=== PATIENT | male | born 1945 | race African-American/Black ===

== ENCOUNTER 2020-02-09 02:42 | Outpatient (CLI) | payer MEDICARE, SELFPAY ==
[2020-02-09 19:52] LABS: SARS-CoV-2 RNA PCR Negative
== END 2020-02-09 02:43 | disposition home or self-care (01) ==
LOC: ANHCOVIDDT 02:42
PROVIDERS: PCP Internal Medicine; Visit Provider Internal Medicine Gastroenterology
DX: Z01.812 Encounter for preprocedural laboratory examination (principal); Z20.828 Contact with and (suspected) exposure to other viral communicable diseases
CPT/HCPCS: 87635; C9803; U0003

== ENCOUNTER 2020-02-12 00:55 | Day surgery (SDC) | payer MEDICARE, SELFPAY ==
[2020-02-07 15:24] VITALS: BMI 20.8
[2020-02-12 09:38] VITALS: BP 132/73; PULSE 91; RESP 17; TEMP 36.9; O2SAT 99; BMI 20.5
--- NOTE | 2020-02-12 09:50 | WPDGICN ---
Assessment and Plan Assessment and plan (1) Weight loss: Code(s): R63.4 - Abnormal weight loss Status: Acute Assessment and Plan: Patient has a history of weight loss over last year. Colonoscopy an EGD request will be performed. Suspect weight loss is related to atherosclerotic heart disease and history of abdominal aortic aneurysm now status post repair for 1 month. Patient does have a distant history of gastritis by endoscopy 1 year ago. This will be reassessed by EGD. A colonoscopy will be performed as well today (2) S/P AAA repair: Code(s): Z98.890 - Other specified postprocedural states; Z86.79 - Personal history of other diseases of the circulatory system Status: Acute (3) ASHD (arteriosclerotic heart disease): Code(s): I25.10 - Atherosclerotic heart disease of [place] coronary artery without angina pectoris Status: Acute (4) History of gastritis: Code(s): Z87.19 - Personal history of other diseases of the digestive system Status: Acute Assessment and Plan: patient has a history of gastritis documented by endoscopy 1 year ago. He complains of early satiety and no appetite. Plan is for EGD to document whether this is healed. GI Consult Note Consult date/time: 02/12/20 09:50 HPI: Fredis Obregon is a 74 year old male Seen in evaluation at the request of Dr. Salazar. patient presents with complaints of weight loss. Patient initially was 183 lb. Currently raise [id number]. Most of the weight loss is occurred over the last 1 year. His states that he does not eat well. He has no appetite. He denies any difficulty swallowing however. Old records review a history of gastritis. He has a history of H pylori which was subsequently treated. This was about 1 year ago. Past medical history is significant for abdominal aortic aneurysm repair approximately with within the last month at [facility]. Patient denies any abdominal pain. He has had no change in his bowel habits. He does see cardiology because of atherosclerotic heart disease. There has been no recent change in medications. Review of Systems Review of Systems: All systems reviewed & are unremarkable except as noted in HPI and below [facility] Social History Social History Smoking packs per day: 1 Smoking cigarettes per day: 20.0 Years smoked: 20 Smoking pack-years: 20.00 Smoking status: Former smoker Tobacco type: cigarettes Alcohol intake: never Substance use: never Substance use type: does not use Living arrangements: alone Spiritual care concerns: No Meds Home Medications and Allergies Home Medications Medication Instructions Recorded Confirmed Type aspirin 81 mg PO DAILY 02/07/20 02/12/20 History atorvastatin 10 mg PO HS 02/07/20 02/12/20 History carvedilol 3.125 mg PO Q12H 02/07/20 02/12/20 History cyproheptadine 4 mg PO HS 02/07/20 02/12/20 History isosorbide mononitrate 60 mg PO DAILY 02/07/20 02/12/20 History metoclopramide HCl 5 mg PO BID 02/07/20 02/12/20 History ooqldicq-lwl-QN-lycopen-lutein 1 tablet PO DAILY 02/07/20 02/12/20 History [Centrum Silver Men] nitroglycerin 0.4 mg SUBLINGUAL Q5M PRN 02/07/20 02/12/20 History polyethylene glycol 3350 17 g PO DAILY PRN 02/07/20 02/12/20 History sennosides [senna] 8.6 mg PO BID PRN 02/07/20 02/12/20 History benazepril 20 mg PO DAILY 02/12/20 02/12/20 History Allergies Allergy/AdvReac Type Severity Reaction Status Date / Time Penicillins Allergy Severe Anaphylactic Verified 02/12/20 09:31 Shock Vital Signs Vital Signs - 24 hr 02/12/20 09:38 Temperature 98.4 F Pulse Rate 91 Respiratory Rate 17 Blood Pressure 132/73 Pulse Oximetry 99 Exam Narrative: Exam Narrative: Physical exam reveals patient to be alert. Vital signs stable. HEENT exam unremarkable. Lungs are clear to auscultation and percussion. Heart is without murmur or extra sounds. Abdominal exam bowel sounds are pre
[2020-02-12] MEDS: LACTATED RINGERS 1,000 ML 150 ML IV CONT (10:11)
--- NOTE | 2020-02-12 10:20 | WPDANESEPPF ---
Anes - Initial Pre Proc Eval Procedure: Operation Date: 02/12/20 10:30 Proposed Procedures p Esophagogastroduodenoscopy & Screening Colonoscopy - Levon Levin MD Date/Time: 02/12/20 10:20 Surgeon: Levon Levin MD Pre Op Diagnosis: Neoplasm Screening, Wt.Loss, Early Satiety Patient Data Age: 74 Gender: M Height: 5 ft 9 in Weight: 63 kg Last Vital Signs Temp 98.4 F 02/12/20 09:38 Pulse 91 02/12/20 09:38 Resp 17 02/12/20 09:38 BP 132/73 02/12/20 09:38 Pulse Ox 99 02/12/20 09:38 Allergies Allergy/AdvReac Type Severity Reaction Status Date / Time Penicillins Allergy Severe Anaphylactic Verified 02/12/20 09:31 Shock Home Medications Medication Instructions Recorded Confirmed Type aspirin 81 mg PO DAILY 02/07/20 02/12/20 History atorvastatin 10 mg PO HS 02/07/20 02/12/20 History carvedilol 3.125 mg PO Q12H 02/07/20 02/12/20 History cyproheptadine 4 mg PO HS 02/07/20 02/12/20 History isosorbide mononitrate 60 mg PO DAILY 02/07/20 02/12/20 History metoclopramide HCl 5 mg PO BID 02/07/20 02/12/20 History qncwsyhr-cca-GU-lycopen-lutein 1 tablet PO DAILY 02/07/20 02/12/20 History [Centrum Silver Men] nitroglycerin 0.4 mg SUBLINGUAL Q5M PRN 02/07/20 02/12/20 History polyethylene glycol 3350 17 g PO DAILY PRN 02/07/20 02/12/20 History sennosides [senna] 8.6 mg PO BID PRN 02/07/20 02/12/20 History benazepril 20 mg PO DAILY 02/12/20 02/12/20 History Patient hx anesthesia problems: none Family hx anesthesia problems: none PMFSH Social History Social History Smoking packs per day: 1 Smoking cigarettes per day: 20.0 Years smoked: 20 Smoking pack-years: 20.00 Smoking status: Former smoker Tobacco type: cigarettes Alcohol intake: never Substance use: never Substance use type: does not use Living arrangements: alone Spiritual care concerns: No Anes - Eval Final PreProcedure Day of Procedure 02/12/20 10:20 Patient weight: normal Heart: regular rate and rhythm Lungs: clear to auscultation Airway: Mallampati scale class III Neurological: alert and oriented Last oral intake: >/= 8 hours ASA classification: III Emergent: no Anesthetic plan: proceed Anesthesia type and monitoring: general GIVS and standard monitoring Informed Consent: The patient's anesthetic plan and its attendant risks and benefits were discussed with the patient/family/POA. Questions were solicited and answers provided to the satisfaction of the patient/family/POA.
[2020-02-12] MEDS: SIMETHICONE ORAL SUSPENSION 20 MG/0.3 ML 30 ML BOTTLE 0.6 ML IRRIGATION (10:40)
[2020-02-12 10:50] VITALS: BP 104/63; PULSE 92; RESP 18; O2SAT 98
[2020-02-12 11:00] VITALS: BP 101/65; PULSE 87; RESP 20; O2SAT 99
--- NOTE | 2020-02-12 11:03 | SUR.PHASEII ---
DR LYON AWARE OF POSITIVE H PYLORI RESULTS, SCRIPTS WRITTEN, SPOKE WITH PT'S
[2020-02-12 11:10] VITALS: BP 117/67; PULSE 82; RESP 22; O2SAT 100
== END 2020-02-12 11:27 | disposition home or self-care (01) ==
PROVIDERS: PCP Internal Medicine; Visit Provider Internal Medicine Gastroenterology
PROC: 0DJ08ZZ Inspection of Upper Intestinal Tract, Via Natural or Artificial Opening Endoscopic (ICD-10-PCS; CPT 43235; principal; 2020-02-12 10:30)
DX: Z12.11 Encounter for screening for malignant neoplasm of colon (principal); K64.8 Other hemorrhoids; K57.30 Diverticulosis of large intestine without perforation or abscess without bleeding; Q39.4 Esophageal web; R63.4 Abnormal weight loss; I25.10 Atherosclerotic heart disease of native coronary artery without angina pectoris; Z86.79 Personal history of other diseases of the circulatory system; Z87.19 Personal history of other diseases of the digestive system; Z87.891 Personal history of nicotine dependence; Z79.82 Long term (current) use of aspirin
CPT/HCPCS: 43450; 43239; G0121; 87081; J2704; J7120

== ENCOUNTER 2023-01-05 00:45 | Day surgery (SDC) | payer MEDICARE, SELFPAY ==
[2022-12-29 09:26] VITALS: BMI 17.7
[2023-01-05 08:39] VITALS: BP 113/63; PULSE 91; RESP 18; TEMP 36.1; O2SAT 99; BMI 17.6
[2023-01-05] MEDS: LACTATED RINGERS 1,000 ML 150 ML IV CONT (09:22)
--- NOTE | 2023-01-05 09:31 | WPDHPUPDATE1 ---
History and Physical Update Update Date/Time: 01/05/23 09:31 History and Physical has been reviewed, including an updated exam of the patient. There are NO changes in the patient's condition. Risks, benefits, and alternatives have been discussed and questions answered. Patient agrees to proceed with procedure.
--- NOTE | 2023-01-05 09:32 | WPDANESEPPF ---
Anes - Initial Pre Proc Eval Procedure: Operation Date: 01/05/23 10:15 Proposed Procedures p Esophagogastroduodenoscopy & Colonoscopy - Armand Costa MD Date/Time: 01/05/23 09:32 Surgeon: Armand Costa MD Pre Op Diagnosis: Abnormal weight loss Patient Data Age: 77 Gender: M Height: 1.75 m Weight: 54.2 kg Last Vital Signs Temp 97 F L 01/05/23 08:39 Pulse 91 01/05/23 08:39 Resp 18 01/05/23 08:39 BP 113/63 01/05/23 08:39 Pulse Ox 99 01/05/23 08:39 O2 Del Method Room Air 01/05/23 08:39 Allergies Allergy/AdvReac Type Severity Reaction Status Date / Time Penicillins Allergy Severe Anaphylactic Verified 01/05/23 08:37 Shock Home Medications Medication Instructions Recorded Confirmed Type aspirin 81 mg tablet 81 mg PO DAILY 02/07/20 01/05/23 History atorvastatin 10 mg tablet 10 mg PO HS 02/07/20 01/05/23 History carvedilol 3.125 mg tablet 3.125 mg PO Q12H 02/07/20 01/05/23 History isosorbide mononitrate 60 mg 60 mg PO DAILY 02/07/20 01/05/23 History tablet,extended release 24 hr vutqbacf-se-zjvwc 300 mcg-K 60 1 tablet PO DAILY 02/07/20 01/05/23 History mcg-lycop 600 mcg-lutein 300 mcg tablet (Centrum Silver Men) nitroglycerin 0.4 mg sublingual 0.4 mg sublingual Q5M PRN Chest 02/07/20 01/05/23 History tablet Pain polyethylene glycol 3350 17 17 g PO DAILY PRN Constipation 02/07/20 01/05/23 History gram/dose oral powder sennosides 8.6 mg tablet (senna) 8.6 mg PO BID PRN Constipation 02/07/20 01/05/23 History benazepril 20 mg tablet 20 mg PO DAILY 02/12/20 01/05/23 History pantoprazole 40 mg tablet,delayed 40 mg PO QAM #90 tabs 01/29/22 01/05/23 Rx release sucralfate 1 gram tablet 1 g PO TID 12/24/22 01/05/23 History Patient hx anesthesia problems: none Family hx anesthesia problems: none Results Review: All pre-operative results and documents have been reviewed as part of the pre-operative evaluation. [facility] Past Medical History Medical History (Updated 12/24/22 @ 13:22 by Armand Costa MD) Esophageal web Hypertension Social History Social History Smoking packs per day: 1 Smoking cigarettes per day: 20.0 Years smoked: 20 Smoking pack-years: 20.00 Smoking status: Former smoker Tobacco type: cigarettes Alcohol intake: never Substance use: never Substance use type: does not use Living arrangements: other Additional living arrangements comments: Lives with significant other Spiritual care concerns: No Anes - Eval Final PreProcedure Day of Procedure 01/05/23 09:32 Patient weight: normal Heart: regular rate and rhythm Lungs: clear to auscultation Airway: Mallampati scale class II Neurological: alert and oriented Last oral intake: >/= 8 hours ASA classification: III Emergent: no Anesthetic plan: proceed Anesthesia type and monitoring: general GIVS and standard monitoring Results Review: All pre-operative results and documents have been reviewed as part of the pre-operative evaluation. Informed Consent: The patient's anesthetic plan and its attendant risks and benefits were discussed with the patient/family/POA. Questions were solicited and answers provided to the satisfaction of the patient/family/POA.
--- NOTE | 2023-01-05 09:46 | SUR.OPER ---
EGD: [id number] COLON: Start 947
[2023-01-05 09:59] VITALS: BP 119/68; PULSE 71; RESP 20; O2SAT 100
[2023-01-05 10:09] VITALS: BP 140/71; PULSE 64; RESP 15; O2SAT 100
[2023-01-05 10:19] VITALS: BP 145/73; PULSE 60; RESP 13; O2SAT 97
== END 2023-01-05 10:40 | disposition home or self-care (01) ==
PROVIDERS: PCP Family Medicine; Visit Provider Internal Medicine Gastroenterology
PROC: 0DJ08ZZ Inspection of Upper Intestinal Tract, Via Natural or Artificial Opening Endoscopic (ICD-10-PCS; CPT 43235; principal; 2023-01-05 10:15)
DX: K29.50 Unspecified chronic gastritis without bleeding (principal); B96.81 Helicobacter pylori [H. pylori] as the cause of diseases classified elsewhere; R63.4 Abnormal weight loss; K57.30 Diverticulosis of large intestine without perforation or abscess without bleeding; K64.8 Other hemorrhoids; K21.9 Gastro-esophageal reflux disease without esophagitis; I10 Essential (primary) hypertension; Q39.4 Esophageal web; Z87.891 Personal history of nicotine dependence; Z79.82 Long term (current) use of aspirin; Z98.890 Other specified postprocedural states; Z86.79 Personal history of other diseases of the circulatory system; Z68.1 Body mass index [BMI] 19.9 or less, adult
CPT/HCPCS: 43239; 45378; 88305; 88342; J2704; J7120